=== PATIENT | female | born 2000 | race African-American/Black ===

== ENCOUNTER 2019-08-17 21:19 | Emergency (ER) | payer SELFPAY ==
[2019-08-17] MEDS ORDERED: cefTRIAXone 250 MG VIAL IM STA (21:56)
[2019-08-17] MEDS ORDERED: LIDOCAINE 1% 2 ML VIAL MC ONE (21:56)
[2019-08-17] MEDS ORDERED: AZITHROMYCIN 250 MG TABLET PO STA (21:57)
--- NOTE | 2019-08-17 21:58 | ED Physician Documentation ---
History of Present Illness - Stated complaint Stated Complaint: F - Chief complaint Chief Complaint: General - History obtained from History obtained from: Patient - History of Present Illness Timing: Prior to arrival Pain level max: 0 Pain level now: 0 - Additonal information Additional information: 19-year-old female who is otherwise healthy presents to the emergency department because of STD exposure. Patient reported that she received a call from a male partner she recently had unprotected sexual intercourse with and was informed that he was tested positive for STD yesterday and he was treated with antibiotics. She did not know what kind of infection he had but he was given a shot as well as 4 pills to take after his diagnosis in the emergency department. She was recommended to come to the emergency department for treatment. Patient denies any pelvic pain. She reported that she had a bad gonorrhea infection when she was in [place] and had to have 1 of her ovaries removed. That happened years ago. The patient recently moved to [facility] from [place] in June of this year. She denies any pelvic pain, abnormal vaginal discharge, fever, lower back pain, dysuria, hematuria urinary frequency or urgency. Her last menstrual period was on August 10, 2019. Review of Systems Constitutional: denies: Fever, Chills Eyes: denies: Loss of vision, Discharge Ears: denies: Loss of hearing, Ear pain Nose: denies: Rhinorrhea / runny nose Cardiac: denies: Chest pain / pressure Respiratory: denies: Dyspnea, Cough GI: denies: Abdominal Pain, Nausea, Vomiting : reports: LMP (08/10/2019). denies: Dysuria, Frequency, Hesitancy, Hematuria, Vaginal bleeding Skin: denies: Rash Musculoskeletal: denies: Neck pain, Back pain, Extremity pain Neurologic: denies: Generalized weakness, Syncope, Seizure, Headache Immunocompromised: denies: Immunocompromised PD PAST MEDICAL HISTORY - Past Medical History Cardiovascular: None Respiratory: Asthma Endocrine/Autoimmune: None GI: None HEENT: None Other Past Medical History: STI - Past Surgical History Past Surgical History: Yes - Present Medications Home Medications: Ambulatory Orders Medication Instructions Recorded Confirmed No Known Home Medications 08/17/19 08/17/19 - Allergies Allergies/Adverse Reactions: Allergies Allergy/AdvReac Type Severity Reaction Status Date / Time iodine Allergy Hives Verified 08/17/19 21:31 - Social History Does the pt smoke?: Yes Smoking Status: Current every day smoker Does the pt drink ETOH?: No Does the pt have substance abuse?: Yes Substance Use and Type: Marijuana - Immunizations Immunizations are current?: No PD ED PE NORMAL - Vitals Vital signs reviewed: Yes - General General: Alert and oriented X 3, Other (tearful and emotional. no acute distress) - HEENT HEENT: Atraumatic, EOMI, Ears normal, Moist mucous membranes - Neck Neck: Supple, no meningeal sign - Cardiac Cardiac: RRR, No murmur - Respiratory Respiratory: No respiratory distress - Abdomen Abdomen: Soft - Derm Derm: Warm and dry - Extremities Extremities: No deformity - Neuro Neuro: Alert and oriented X 3, No motor deficit, Normal speech Eye Opening: Spontaneous Motor: Obeys Commands Verbal: Oriented GCS Score: 15 Results - Vitals Vitals: Vital Signs - 24 hr 08/17/19 08/17/19 21:28 22:29 Temperature 36.8 C 36.4 C L Heart Rate 87 81 Respiratory 16 17 Rate Blood Pressure 112/86 H 118/74 O2 Saturation 100 100 Oxygen O2 Source Room air PD MEDICAL DECISION MAKING - ED course Complexity details: d/w patient ED course: 19-year-old female presented to the emergency department for evaluation because of recent STD exposure. Patient had unprotected sex with a male partner, who was recently diagnosed with STD. He received an injection and 4 tablets of antibiotic. Based on history, it appears that patient's partner was likely treated with Rocephin intramuscular injection and azithromycin.Patient was given 250 mg of Rocephin IM and at the house milligrams of azithromycin. Patient was asymptomatic. Patient remained hemodynamically stable. I have asked the patient to follow-up with either [facility] or [facility] of [facility] for retesting to ensure the adequate treatment. If there was also concern for other STDs, I have asked the patient to follow-up with Department of Health for further evaluation. Patient expressed verbal understanding. Strict return instructions were given. Patient was discharged in stable condition. Departure - Departure Disposition: 01 Home, Self Care Clinical Impression: STD (sexually transmitted disease) Condition: Stable Instructions: STDs, STD, ED Chlamydia Female, ED Gonorrhea Female Follow-Up: [facility] [Provider Group] - Within 1 week Comments: PLEASE FOLLOW UP WITH DEPARTMENT OF HEALTH OR YOUR REGULAR DOCTOR IN 1 WEEK TO RECHECK AND TO ENSURE YOUR INFECTION IS ADEQUATELY TREATED. PLEASE RETURN TO THE EMERGENCY DEPARTMENT IF YOU DEVELOP A FEVER OF 100.4 OR GREATER, PELVIC PAIN, ABNORMAL DISCHARGE OR ANY NEW OR CONCERNING SYMPTOMS. Discharge Date/Time: 08/17/19 22:35
[2019-08-17 22:29] VITALS: BP 118/74
== END 2019-08-17 22:35 | disposition home or self-care (01) ==
LOC: ED 21:19
DX: A64 Unspecified sexually transmitted disease (principal); F17.200 Nicotine dependence, unspecified, uncomplicated
CPT/HCPCS: 96372; 99283; 99284; A9270